=== PATIENT | female | born 2005 | race Caucasian/White ===

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

== ENCOUNTER 2024-09-06 15:28 | Emergency (ER) | payer OTHER, SELFPAY ==
[2024-09-06 15:35] VITALS: BP 115/52; PULSE 82; RESP 18; TEMP 37.4; O2SAT 100
--- NOTE | 2024-09-06 15:45 | ED.URI ---
HPI - URI/Sore Throat General Chief Complaint: Upper Respiratory Infection Stated Complaint: Sore Throat/Headache/Ear Pain Time Seen by Provider: 09/06/24 15:45 Source: patient Mode of arrival: ambulatory Limitations: no limitations History of Present Illness HPI Narrative: 19-year-old female presents with complaint of sore throat, fatigue, headache, nausea for 5 days. Vomited once today. Low-grade fever today. All systems reviewed and negative except as noted above. Related Data Allergies Allergy/AdvReac Type Severity Reaction Status Date / Time No Known Allergies Allergy Verified 12/07/23 12:18 Review of Systems Review of Systems: CONSTITUTIONAL: Denies fever, chills, or sweats. reports fatigue. EYES: Denies visual changes, redness, or discharge. ENT: Denies rhinorrhea, congestion . Reports sore throat. Denies otalgia. CARDIOVASCULAR: Denies chest pain, palpitations, or edema. RESPIRATORY: Denies cough or dyspnea. GASTROINTESTINAL: Denies abdominal pain . Reports nausea, vomiting. Denies diarrhea. GENITOURINARY: Denies dysuria or hematuria. SKIN: Denies rash or itching. MUSCULOSKELETAL: Denies back pain, joint pain, or myalgia. NEUROLOGIC: Denies headache, numbness, or weakness. PSYCHIATRIC: Denies anxiety or depression. All other systems reviewed are negative, except as documented in HPI. PMFSH Comments At time of signature, agree with nursing past medical, surgical, social and family history. There is no relevant family history pertinent to the presenting complaint. Exam Narrative: GENERAL: This is a well-nourished, well-developed patient, in no apparent distress. HEAD: normocephalic, atraumatic. EYES: PERRL. Sclera clear/white. Vision is grossly intact. EARS: External ears normal, auditory canals clear and without drainage, TMs normal without perforation. Hearing grossly intact. NOSE: External nose normal with no obvious nasal discharge, nares without redness, no rhinorrhea. THROAT: Mucous membranes moist, erythematous, tonsils 1+ bilaterally without exudates NECK: Neck supple, non-tender without lymphadenopathy, masses or thyromegaly. CARDIOVASCULAR: Regular rate and rhythm without murmurs, gallops, or rubs. RESPIRATORY: Clear to auscultation. Breath sounds equal bilaterally. No wheezes, rales, or rhonchi. SKIN: warm, Dry, intact with no suspicious lesions or rash, good texture and turgor. NEURO: awake, alert, and oriented to person, place and time. There were no obvious focal neurologic abnormalities. EXTREMITIES: No joint tenderness, effusion, or edema noted. Course Course Level of Care: Express Care Visit Vital Signs Vital signs: Vital Signs Temperature 37.4 C 09/06/24 15:35 Pulse Rate 82 09/06/24 15:35 Respiratory Rate 18 09/06/24 15:35 Blood Pressure 115/52 L 09/06/24 15:35 Pulse Oximetry 100 09/06/24 15:35 Oxygen Delivery Room Air 09/06/24 15:35 Temperature 37.4 C 09/06/24 15:35 Pulse Rate 82 09/06/24 15:35 Respiratory Rate 18 09/06/24 15:35 Blood Pressure 115/52 L 09/06/24 15:35 Pulse Oximetry 100 09/06/24 15:35 Oxygen Delivery Room Air 09/06/24 15:35 reviewed MDM - URI/Sore Throat MDM Narrative Medical decision making narrative: positive rapid strep. Will treat with antibiotic. Patient is well-appearing, nontoxic. Please be advised this is a medical document. It is intended for [id number]-[id number] communication. It is written in medical language and may contain unfamiliar abbreviations or verbiage. Medical documents are intended to carry relevant information, facts as evident, and the clinical opinion of the practitioner at the time of the encounter. This report may have been done utilizing a voice recognition system. Attempts have been made to correct errors. However, there may be uncorrected grammatical, spelling, and recognition errors present. The file time of this note does not necessarily represent the time of service. Differential Diagnosis Differential diagnosis: Likely upper respiratory infection, sinusitis, viral infection, influenza and pharyngitis Discharge Plan Discharge Clinical Impression: Strep throat Patient Disposition: Home, Self-Care Condition: Stable Instructions: Antibiotic Form, Strep Throat (ED) Additional Instructions: Your strep test was positive today. take antibiotic as prescribed until gone. Change toothbrush after taking antibiotic for 24 hours. Take ibuprofen or Tylenol every 6-8 hours as needed for pain and fever. Drink at least 64 oz water a day. See your primary care physician if symptoms not improving. Patient Language: Ukrainian Prescriptions: New amoxicillin 500 mg capsule 500 mg PO Q12H 10 Days Qty: 20 0RF ondansetron 4 mg tablet,disintegrating 4 mg PO Q8H PRN (Reason: nausea and vomiting) Qty: 12 0RF No Action triamcinolone acetonide 0.1 % cream 1 applic topical BID Qty: 30 0RF cephalexin 500 mg capsule 500 mg PO Q12H 5 Days Qty: 10 0RF methylprednisolone [Medrol (Mark)] 4 mg tablets,dose pack See Rx Instructions .ROUTE .COMPLEX Qty: 21 0RF Rx Instructions: orally per package directions Follow-up/Referrals: PHYSICIAN,OUTPATIENT THERAPIST [Primary Care Provider] - Stand Alone Forms: Work/School Release IP Time of Disposition: 15:56
[2024-09-06 15:50] LABS: EDSTREPNEGPOS1 Positive (Negative)
== END 2024-09-06 16:06 | disposition home or self-care (01) ==
PROVIDERS: Emergency Provider Nurse Practitioner Family
DX: J02.0 Streptococcal pharyngitis (principal)
CPT/HCPCS: 87880; 99213; G0463

== ENCOUNTER 2024-09-09 13:28 | Emergency (ER) | payer OTHER, SELFPAY ==
[2024-09-09 13:33] VITALS: BP 132/78; PULSE 100; RESP 20; TEMP 37.3; O2SAT 100
--- NOTE | 2024-09-09 13:49 | ED_ITS ---
HPI - URI/Sore Throat General Chief Complaint: Upper Respiratory Infection Stated Complaint: ears Time Seen by Provider: 09/09/24 13:49 Source: patient, RN notes reviewed and old records reviewed Mode of arrival: ambulatory Limitations: no limitations History of Present Illness HPI Narrative: 19 year old female presents to [facility] care with complaints of sore throat and ear pain for a week. Patient was diagnosed with strep throat on 09/06/2024 and is presently on Amoxicillin. Patient reports that her throat is a little better but her left ear hurts especially at night. Patient reports that she has been taking Tylenol dual action medication for her discomfort. MD elicited complaint: other (ear pain) Pertinent past history: other (diagnosed with strep throat on 09/06/2024 is on Amoxicillin) Onset (ago): week(s) (1) Severity: moderate Able to tolerate fluids by mouth: Yes Treatments prior to arrival: other (on Amoxicillin for strep throat) Related Data Allergies Allergy/AdvReac Type Severity Reaction Status Date / Time No Known Allergies Allergy Verified 09/09/24 13:52 Review of Systems Review of Systems: CONSTITUTIONAL: Reports malaise, no chills, sweats, +low grade fever. EYES: Denies visual changes, redness, or discharge. ENT: Reports rhinorrhea, congestion, sinus pain, left otalgia and positive for sore throat. CARDIOVASCULAR: Denies chest pain, palpitations, or edema. RESPIRATORY: Reports cough.? Denies dyspnea. GASTROINTESTINAL: Denies abdominal pain, nausea, vomiting, diarrhea SKIN: Denies rash or itching. MUSCULOSKELETAL: Denies myalgia. NEUROLOGIC: Denies headache. All systems reviewed & are unremarkable except as noted in HPI and below PMFSH Past Medical History Medical History History of strep sore throat Social History Social History Smoking status: Never smoker Alcohol intake: never Substance use: never Living arrangements: with family Gender identity (if verbalized by the patient): Female Comments At time of signature, agree with nursing past medical, surgical, social and family history. There is no relevant family history pertinent to the presenting complaint Exam Narrative: GENERAL: Well-appearing, well-nourished, and in no acute distress. HEAD: Normocephalic EYES: PERRLA, conjunctivae clear ENT: Nares clear, turbinates edematous and erythematous, clear discharge. Mucous membranes moist Left TM red, Right TM pearly greco with dull light reflex; no tragal tenderness. Oropharynx erythematous without lesions. Tonsils red not enlarged and without exudate, no drooling, no hoarseness, no trismus, uvula midline, post nasal drainage. NECK: Supple. No lymphadenopathy CHEST: Clear to auscultation, breath sounds equal. No wheezing, rhonchi, rales, or stridor. No respiratory distress, speaks in full sentences.no cough noted SAO2 100% on room air HEART: Regular rate and rhythm. No murmur heard. SKIN: Warm, dry, no rash. NEURO: Alert and oriented x3. PSYCH: Normal mood and affect Course Course Emergency Course: Patient is aware of diagnosis, understands and agrees to treatment plan.? Anticipatory guidance given.? Patient agrees to follow-up as directed and is aware of reasons to seek care at the emergency department. Portions of this record may have been created with voice recognition software Level of Care: Express Care Visit Vital Signs Vital signs: Vital Signs Temperature 37.3 C 09/09/24 13:33 Pulse Rate 100 09/09/24 13:33 Respiratory Rate 20 09/09/24 13:33 Blood Pressure 132/78 09/09/24 13:33 Pulse Oximetry 100 09/09/24 13:33 Oxygen Delivery Room Air 09/09/24 13:33 Temperature 37.3 C 09/09/24 13:33 Pulse Rate 100 09/09/24 13:33 Respiratory Rate 20 09/09/24 13:33 Blood Pressure 132/78 09/09/24 13:33 Pulse Oximetry 100 09/09/24 13:33 Oxygen Delivery Room Air 09/09/24 13:33 Reviewed MDM - URI/Sore Throat MDM Narrative Medical decision making narrative: Differential diagnosis considered: More[place] virus, strep pharyngitis, allergic rhinitis, upper respiratory tract infection, sinusitis, rhinosinusitis, nasopharyngitis. viral pharyngitis, otitis media, otitis externa, pneumonia, bronchitis, viral cough syndrome, viral syndrome, and influenza.? Exam findings show no acute concerns or changes; patient is non-toxic appearing and is in no distress.? Patient is appropriate for outpatient treatment and follow-up. Differential Diagnosis Differential diagnosis: Likely upper respiratory infection, otitis media, sinusitis, viral infection, pharyngitis and other (strep pharyngitis diagnosed 09/06/2024) Medical Records Attestation: I reviewed the patient's medical records. Lab Data Attestation: I reviewed the patient's lab results. Critical Care Time Critical Care Time Critical Care Time: No Discharge Plan Discharge Clinical Impression: Acute left otitis media, Strep pharyngitis Patient Disposition: Home, Self-Care Condition: Stable Instructions: Antibiotic Form, Strep Throat (ED), Ear Infection (GEN) Additional Instructions: You tested positive for Group A strep 09/06/2024 Antibiotic changed to Augmentin today due to ear infection also Throw away your current toothbrush and begin using a new toothbrush in 48 hours in order to prevent re-infection. Sanitize all reusable water bottles . Do not share items with others. Salt water gargles may alleviate some of the throat discomfort. You can take Tylenol or ibuprofen per the package instructions for pain/fever. Zyrtec, Claritin or Julieta daily, Tylenol or Ibuprofen for any fever or pain If your symptoms persist, change or worsen significantly before you can contact your personal physician then please, without delay, go to the emergency department for further evaluation. Follow-up with PCP in 7-10 days or sooner if needed Follow up with PCP soon in regards to your blood pressure which is elevated above threshold for referral. Blood pressure above 120/80 may indicate pre- hypertension. 132/78 Patient Language: Thai Prescriptions: New amoxicillin-pot clavulanate 875-125 mg tablet 1 tablet PO Q12H Qty: 20 0RF Rx Instructions: Take all doses medication recommend taking a probiotic or eating activia yogurt while taking this medication No Action amoxicillin 500 mg capsule 500 mg PO Q12H 10 Days Qty: 20 0RF ondansetron 4 mg tablet,disintegrating 4 mg PO Q8H PRN (Reason: nausea and vomiting) Qty: 12 0RF Follow-up/Referrals: PHYSICIAN,MILITARY PAY CLERK [Primary Care Provider] - Time of Disposition: 14:08 Quality Dillon Coma Scale Eyes: Open Verbal: Oriented and Alert Motor: Follows Commands Dillon Coma Total Score: 15
== END 2024-09-09 14:10 | disposition home or self-care (01) ==
PROVIDERS: Emergency Provider Registered Nurse
DX: H66.92 Otitis media, unspecified, left ear (principal); J02.0 Streptococcal pharyngitis
CPT/HCPCS: 99213; G0463